=== PATIENT | male | born 1990 | race African-American/Black ===

== ENCOUNTER 2022-02-05 09:45 | Day surgery (SDC) | payer OTHER ==
[~2022-02-05] VITALS: Ht 170.2 cm; Wt 78.5 kg
[2022-02-05 11:31] VITALS: BP 128/68; PULSE 66; TEMP 98.8
[2022-02-05 12:25] VITALS: BP 100/75; PULSE 78; TEMP 97
--- NOTE | 2022-02-05 12:25 | NUR ---
The patient arrived back to [facility] from the endoscopy suite at this time. The patient ambulated from the cart to the recliner in his room with the stand by assistance of two nurses and appeared to tolerate the activity well. Vital signs were started at this time. Call light is within reach. Denies any further needs.
[2022-02-05 12:40] VITALS: BP 103/65; PULSE 68
--- NOTE | 2022-02-05 12:40 | NUR ---
The patient appears to be tolerating the food and drink well. Vital signs appear stable.
[2022-02-05 12:55] VITALS: BP 119/86; PULSE 61
--- NOTE | 2022-02-05 12:55 | NUR ---
The nurse asked the patient to please call his ride to let them know they can head to the hosptial to pick him up for discharge.
[2022-02-05 13:09] VITALS: BP 108/61; PULSE 73
--- NOTE | 2022-02-05 13:10 | NUR ---
Dr. Qiu has been at the patient's bedside to discuss the findings of the procedure. The patient's IV to his right hand was removed and a pressure dressing was applied to the site. The nurse instructed the patient to get dressed and then his discharge instructions will be reviewed.
--- NOTE | 2022-02-05 13:20 | NUR ---
Discharge instructions were reviewed with the patient at this time. He verbalized understanding and has no questions for the nurse at this time. He is waiting for his friend to arrive to drive him home. He is dressed and ready to be escorted out. The nurse instructed the patient to press the call light when he friend notifies him that he is here.
--- NOTE | 2022-02-05 13:30 | NUR ---
The patient was escorted out via wheelchair to a private vehicle at this time. The patient's belongings and discharge paperwork were sent with him. The patient's friend is present drive him home.
== END 2022-02-05 13:30 | disposition home or self-care (01) ==
LOC: SDCO 09:45
DX: K92.1 Melena (principal); R19.7 Diarrhea, unspecified
CPT/HCPCS: J2704; J7030